=== PATIENT | female | born 1960 | race Caucasian/White ===

== ENCOUNTER → 2017-12-20 06:49 | Outpatient (CLI) | payer BC, SELFPAY ==
--- NOTE | 2017-12-20 09:31 | STRESSREP ---
Stress Test Report Exercise myocardial perfusion stress test. 57-year-old lady with a history of chest pain. Medications aspirin metoprolol pravastatin isosorbide and Plavix. Stress protocol: Resting EKG demonstrates normal sinus rhythm with a rate of 78 bpm normal intervals and noted resting blood pressure 738/82 mmHg. The patient exercised according to regular Alcides protocol for total duration of 5 minutes and 15 seconds completing 2 minutes and 15 seconds to stage II of the Alcides protocol the maximum heart rate attained was 146 bpm addressed with 88% maximum predicted heart rate the maximum workload attained was 7 metabolic equivalents. At rest there were no ST or T-wave changes noted suggest ischemia at peak exercise no ST or T-wave changes were noted suggest ischemia. No clinical angina was noted. The resting blood pressure 738/82 with a peak blood pressure 190/68 mmHg rate pressure product was 26,400. Myocardial perfusion protocol. 14.1 mCi of technetium 99m sestamibi was injected at rest. The patient exercised according to regular Alcides protocol for a total duration of 5 minutes and 15 seconds. At peak exercise 44.8 mCi of technetium 99m sestamibi was injected stress images were reconstructed and compared in the short axis vertical long and horizontal long axis. Gated images were also obtained. Perfusion SPECT analysis: The stress and rest images were reconstructed and compared. The stress images demonstrate normal uptake of tracer noted in all areas of the myocardium. The resting images similarly demonstrate normal uptake of tracer noted in all areas of myocardium. No areas of reversibility are noted suggest ischemia. No previous infarct was noted. Gated SPECT analysis: The gated ejection fraction is noted to be 84%. Conclusion: Normal exercise myocardial perfusion stress test at a moderate workload. Preserved ejection fraction.
== END ==
PROVIDERS: Family Provider Student in an Organized Health Care Education/Training Program; PCP Student in an Organized Health Care Education/Training Program; Visit Provider Physician Assistant Medical
DX: R07.9 Chest pain, unspecified (principal); I25.10 Atherosclerotic heart disease of native coronary artery without angina pectoris; R06.09 Other forms of dyspnea; I10 Essential (primary) hypertension
CPT/HCPCS: 78452; 93017; A9500; A4216

== ENCOUNTER → 2018-01-01 09:08 | Outpatient (CLI) | payer BC, SELFPAY ==
--- NOTE | 2018-01-01 09:10 | RAD_ITS ---
STUDY: X-RAY - LEFT KNEE REASON FOR EXAM: Female, 57 years old. Pain. TECHNIQUE: 4 view(s) of the knee. COMPARISON: 4 views of the left knee May 08, 2017; intraoperative fluoroscopic spot views of the left knee 1215 hours. FINDINGS: Early lateral periarticular spurring of the femoral condyles. The lateral periarticular spurring of the tibial plateau. Normal visualized proximal fibula. There is mixed sclerotic and lucent density in the mid to upper body of the patella, the site of prior stabilization pin or drill on the intraoperative images. There is mild to moderate lateral periarticular spurring of the patella. There is no demonstrated destructive osseous lesion or acute fracture. There is mild degenerative arthrosis of the medial femorotibial compartment. Normal lateral femorotibial compartment. Normal patellofemoral articulation. Normal proximal tibiofibular articulation. There is no demonstrated joint effusion. There is mild deformity of the prepatellar soft tissues that may reflect postsurgical change. RAD/Knee 4 or More Views IMPRESSION: Stable mild degenerative changes of the left knee, as described. Mixed density in the mid body of the patella secondary to placement of stabilization pin or drill seen on earlier intraoperative spot films. Electronically Signed: Keyshawn Reynolds MD at 19:51 EDT , Service support ,
== END ==
PROVIDERS: Family Provider Student in an Organized Health Care Education/Training Program; PCP Student in an Organized Health Care Education/Training Program; Visit Provider Orthopaedic Surgery
DX: M25.562 Pain in left knee (principal)
CPT/HCPCS: 73564

== ENCOUNTER → 2018-03-29 10:52 | Outpatient (CLI) | payer BC, SELFPAY ==
[2018-03-29 11:49] LABS: AST(SGOT) 12 U/L (15-37); Alanine Aminotransfer ALT/SGPT 27 U/L (13-56); Albumin, Serum 4.2 g/dL (3.2-5.0); Alkaline Phosphatase 59 U/L (45-117); Cholesterol 210 mg/dL (200); Globulin 3.5 g/dL (2.2-4.2); High Density Lipoprotein 44 mg/dL; Protein, Total 7.7 g/dL (6.4-8.2); Triglycerides 247 mg/dL; Very Low Density Lipoprotein 49 mg/dL (5-40)
== END ==
PROVIDERS: Family Provider Student in an Organized Health Care Education/Training Program; PCP Student in an Organized Health Care Education/Training Program; Referring Provider Internal Medicine Cardiovascular Disease; Visit Provider Internal Medicine Cardiovascular Disease
DX: E78.5 Hyperlipidemia, unspecified (principal)
CPT/HCPCS: 36415; 80061; 80076

== ENCOUNTER 2019-03-01 11:12 | Outpatient (RCR) | payer BC, SELFPAY ==
[2018-09-20 09:16] VITALS: BMI 42.4
== END 2019-03-02 23:59 ==
LOC: NS 11:12
PROVIDERS: Family Provider Student in an Organized Health Care Education/Training Program; PCP Student in an Organized Health Care Education/Training Program; Visit Provider Orthopaedic Surgery
DX: E66.9 Obesity, unspecified (principal); Z68.41 Body mass index [BMI] 40.0-44.9, adult; Z71.3 Dietary counseling and surveillance
CPT/HCPCS: 97802

== ENCOUNTER 2019-03-15 09:15 | Outpatient (RCR) | payer BC, SELFPAY ==
[2018-09-20 09:16] VITALS: BMI 42.4
== END 2019-04-01 23:59 ==
LOC: NS 09:15
PROVIDERS: Family Provider Student in an Organized Health Care Education/Training Program; PCP Student in an Organized Health Care Education/Training Program; Visit Provider Orthopaedic Surgery
DX: E66.9 Obesity, unspecified (principal); Z68.41 Body mass index [BMI] 40.0-44.9, adult; Z71.3 Dietary counseling and surveillance
CPT/HCPCS: 97803

== ENCOUNTER 2019-04-19 08:30 | Outpatient (RCR) | payer BC, SELFPAY ==
[2018-09-20 09:16] VITALS: BMI 42.4
== END 2019-05-02 23:59 ==
LOC: NS 08:30
PROVIDERS: Family Provider Student in an Organized Health Care Education/Training Program; PCP Student in an Organized Health Care Education/Training Program; Visit Provider Orthopaedic Surgery
DX: E66.9 Obesity, unspecified (principal); Z68.41 Body mass index [BMI] 40.0-44.9, adult; Z71.3 Dietary counseling and surveillance
CPT/HCPCS: 97803

== ENCOUNTER 2019-05-29 09:30 | Outpatient (RCR) | payer BC, SELFPAY ==
[2018-09-20 09:16] VITALS: BMI 42.4
== END 2019-06-01 23:59 ==
LOC: NS 09:30
PROVIDERS: Family Provider Student in an Organized Health Care Education/Training Program; PCP Student in an Organized Health Care Education/Training Program; Visit Provider Orthopaedic Surgery
DX: Z71.3 Dietary counseling and surveillance (principal); E66.9 Obesity, unspecified; Z68.41 Body mass index [BMI] 40.0-44.9, adult
CPT/HCPCS: 97803

== ENCOUNTER 2019-08-20 10:08 | Outpatient (RCR) | payer BC, SELFPAY ==
[2019-05-03 10:41] VITALS: BMI 43.5
== END 2019-08-31 23:59 ==
LOC: NS 10:08
PROVIDERS: Family Provider Student in an Organized Health Care Education/Training Program; PCP Student in an Organized Health Care Education/Training Program; Visit Provider Orthopaedic Surgery
DX: Z71.3 Dietary counseling and surveillance (principal); E66.9 Obesity, unspecified; Z68.41 Body mass index [BMI] 40.0-44.9, adult
CPT/HCPCS: 97803

== ENCOUNTER → 2020-04-15 | Outpatient (CLI) | payer MEDICARE, SELFPAY ==
[2020-04-06 08:40] VITALS: BMI 43.5
--- NOTE | 2020-04-15 07:40 | CT_ITS ---
CT of the right lower extremity without contrast INDICATION: Preop right knee arthroplasty, Yu code procedure. COMPARISON: X-ray 04/06/2020 TECHNIQUE: Multiple thin section axial CT images of the right lower extremity were obtained through the hip joint, knee joint, and ankle joint and filmed in bone windows. Furthermore, multiple sagittal and coronal reconstructions were performed. Dose limiting techniques were utilized. Next FINDINGS: No abnormal soft tissue mass, lymphadenopathy, or fluid collection. No acute fracture or dislocation. No lytic or blastic lesions. Mild arthrosis the right hip joint with some lateral spurring of the roof of acetabulum. Moderate right knee arthrosis with the moderate narrowing of the medial compartment and a moderate size joint effusion. Normal ankle joint. IMPRESSION: Moderate knee arthrosis. Electronically Signed: Miguel Hutchinson MD at 13:18 EDT Tel , Service support , CT/Extremity Lower without Contra
== END | disposition home or self-care (01) ==
PROVIDERS: PCP Student in an Organized Health Care Education/Training Program; Referring Provider Orthopaedic Surgery; Visit Provider Orthopaedic Surgery
DX: M17.11 Unilateral primary osteoarthritis, right knee (principal)
CPT/HCPCS: 73700

== ENCOUNTER 2020-05-05 05:30 | Day surgery (SDC) | payer MEDICARE, SELFPAY ==
[2020-04-06 08:40] VITALS: BMI 43.5
--- NOTE | 2020-04-28 08:37 | EKG12_ITS ---
Test Reason : PREOP Blood Pressure : / mmHG Vent. Rate : 058 BPM Atrial Rate : 058 BPM P-R Int : 188 ms QRS Dur : 078 ms QT Int : 428 ms P-R-T Axes : 052 099 083 degrees QTc Int : 420 ms AGE AND GENDER SPECIFIC ECG ANALYSIS Sinus bradycardia Abnormal ECG Confirmed by DOMENICO LOVE, ROMI ([id number]), primer expeditor and drier AVEL SCANLON ([id number]) on 04/29/2020 11:44:39 AM Referred By: Gurjit Hernandez Confirmed By:ROMI ACUÑA MD
[2020-04-28 10:05] LABS: Absolute Lymphocyte Count 1.35 X10^3/uL (0.83-4.51); Absolute Neutrophil Count 6.1 X10^3/uL (2.0-7.7); Basophil# 0.04 X10^3/uL; Basophil% 0.5 % (0-1); Eosinophil# 0.26 X10^3/uL; Hematocrit 37.2 % (37-47); Hemoglobin 12.6 g/dL (12.0-15.0); Lymphocyte # 1.35 X10^3/ul (4.0); Lymphocyte % 15.8 % (19-41); Mean Corp Hgb Conc 33.9 g/dL (32-36); Mean Corpuscular Hgb 31.4 pg (27.0-32.0); Mean Corpuscular Volume 92.8 fL (81-99); Mean Platelet Vol. 9.3 fl (6.2-12.0); Monocyte# 0.79 X10^3/uL; Monocyte% 9.3 % (0-10); NRBC Flagged by Analyzer 0 % (0-5); Neutrophil # 6.06 X10^3/uL (2.7-7.7); Platelet Count 280 K/mm3 (150-450); RBC Distribution Width CV 12.2 % (11.6-14.6); RBC Distribution Width SD 41.9 fl (35.1-43.9); Red Blood Count 4.01 M/mm3 (4.2-5.4); White Blood Count 8.5 K/mm3 (4.4-11.0)
[2020-04-28 10:08] LABS: Prothrombin Time (Protime)PT. 12.8 SECONDS (11.7-14.9)
[2020-04-28 10:09] LABS: Partial Thromboplast Time 25.3 Seconds (24.1-36.2)
[2020-04-28 10:26] LABS: Anion Gap 8 (5-15); BUN 14 mg/dL (7-18); BUN/Creat Ratio 14.1 RATIO (10-20); Calcium,Total 9.3 mg/dL (8.5-10.1); Chloride 95 mmol/L (98-107); Creatinine, Serum 0.99 mg/dL (0.55-1.02); EST Glomerular Filtration Rate 61 mL/min (>60); Est Glom Filt Rate - Afr Amer 74 mL/min (>60); Glucose 95 mg/dL (74-106); Potassium 4.3 mmol/L (3.5-5.1); Sodium Level 129 mmol/L (136-145)
[2020-04-30 11:23] VITALS: BMI 41.5
[2020-05-05] VITALS (8 sets, daily range): BP systolic 137–166; BP diastolic 56–81; PULSE 60–67; RESP 14–16; TEMP 35.5–36.7; O2SAT 93–100; BMI 44.6
[2020-05-05 06:16] LABS: Bedside Glucose 83 mg/dL (70-110)
[2020-05-05] MEDS: Acetaminophen 500 MG Tablet 1000 MG PO (06:21)
[2020-05-05] MEDS: Celecoxib 200 MG Capsule 400 MG PO (06:22)
[2020-05-05] MEDS: Gabapentin 600 MG Tablet PO (06:22)
[2020-05-05] MEDS: Scopolamine 1mg/72hr Patch 1 PATCH TRANSDERM. (06:23)
[2020-05-05] MEDS: Lactated Ringers 1,000 ML 100 ML IV (06:55)
--- NOTE | 2020-05-05 07:14 | HP.PCM_ITS ---
History and Physical Date of Admission: 05/05/20 Intake Vital Signs 04/06/20 BMI 43.5 04/06/20 Height 5 ft 7 in 04/06/20 Weight: 264 lb 04/06/20 BMI 41.3 Intake Visit Reasons: RIGHT KNEE Is patient in pain?: Yes Allergies codeine Allergy (Verified 04/06/20 08:40) Itching Medications Aspirin [Aspirin, Baby] 81 mg PO DAILY@0800 09/25/14 [History Confirmed 04/06/20] Lorazepam [Ativan] 0.5 mg PO DAILY PRN PRN 06/28/17 [History Confirmed 04/06/20] risperidone 1 mg tablet 3 mg PO QDAY tab 03/29/18 [History Confirmed 04/06/20] bupropion HCl 300 mg 24 hr tablet, extended release 300 mg PO QAM 09/20/18 [History Confirmed 04/06/20] carbamazepine 200 mg tablet 200 mg PO .COMPLEX 09/20/18 [History Confirmed 04/06/20] fluoxetine 20 mg capsule 20 mg PO DAILY 09/20/18 [History Confirmed 05/03/19] metoprolol tartrate 25 mg tablet 25 mg PO BID #180 tab 07/30/19 [Rx Confirmed 04/06/20] pravastatin 80 mg tablet 80 mg PO QHS #90 tab 07/30/19 [Rx Confirmed 04/06/20] hydrochlorothiazide 25 mg tablet 25 mg PO QDAY #90 tab 11/12/19 [Rx Confirmed 04/06/20] clopidogrel 75 mg tablet 75 mg PO DAILY #90 tab 11/13/19 [Rx Confirmed 04/06/20] fluoxetine 40 mg capsule mg PO 04/06/20 [History Confirmed 04/06/20] lamotrigine 200 mg tablet PO 04/06/20 [History Confirmed 04/06/20] PFSH Social History (Updated 04/06/20 @ 09:[address] Gurjit Hernandez DO) Smoking Status: Current some day smoker tobacco type: e-cigarettes quit status: considering quitting alcohol intake: never substance use type: does not use caffeine: Yes Type: coffee Number of servings: 2 what type of physical activity do you participate in: bicycling HPI RIGHT KNEE: Details: Parts of this documentation were recorded by a scribe, this documentation accurately reflects the service provided and the decisions made by me, Dr. Gurjit Hernandez DO 04/06/20 0743. BRODERICK CAICEDO is a 59 year old F here today for right knee pain. Patient notes that she has had right knee pain for over a year. She denies any known injury. Patient notes that she has pain over her entire anterior knee. She had arthroscopic on 12/18/[address] Owusu. She notes that she had a meniscus tear that was cleaned out. Patient states that her pain is worse now since her surgery. Patient completed physical therapy prior to surgery and after surgery. She had to quit therapy due to increased pain. Patient has increased pain with ambulating stairs. She has popping in her knee. Patient complains of swelling. Patient notes that she has knee instability. Patient denies any injections and does not want to try them. She has OTC braces which is not helpful. Patient is taking hydrocodone for pain. Patient denies any recent xrays or MRI. She denies any inflammatory conditions. She notes that she has taken aleve before which caused her stomach issues. She is on Plavix for stentAnd aspirin ROS [facility] Reports joint pain, Reports joint swelling, Reports stiffness Skin/Breast Reports system reviewed and no additional complaints, except as docu Neuro Yes system reviewed and no additional complaints, except as docu Ortho Exam Right Knee Skin/Wound: Yes CDI, No erythema, No ecchymosis, Yes swelling Homans Sign: No 1+: Effusion Knee ROM: Yes ROM-Extension -20 to 0 (-5), Yes ROM-Flexion 0-140 (100) Examination: Yes Med jt line tenderness, Yes Lat jt line tenderness, Yes TTP inf pole patella, Yes Pain with flexion Stability: NML: Anterior Drawer, NML: Posterior Drawer, NML: Valgus 30, NML: Varus 30 Patella Translation: 1 Patella Grind: Yes KNEE: no patellar instability. Left Knee Patella Translation: 1 Supplemental Info 04/06/2020 moderately severe medial joint space narrowing with subchondral sclerosis and spurring moderate spurring patellofemoral joint Assessment & Plan Problems 1. Primary osteoarthritis of right knee M17.11 2. Class 3 severe obesity due to excess calories without serious comorbidity with body mass index (BMI) of 40.0 to 44.9 in adult E66.01; Z68.41 3. Other tobacco product nicotine dependence, uncomplicated F17.290 Plan Educated the patient about the anatomy of the knee and etiology of her pain. Spoke with her about osteoarthritis and her options- gel injection vs steroid injection, physical therapy, weight loss, total knee replacement. She is not interested in injections. Spoke with her about the benefits of stopping smoking and explained increase risk of infection secondary to smoking and weight. Explained the surgery procedure and recovery. She will have numbness over her lateral knee. Patient will be on a blood thinner following surgery to prevent blood clot. Patient will also need to wear a compression stocking. She will need to have an antibiotic prior to any dental work. She will need formal physical therapy for range of motion. Patient will not be able to drive for about 6 weeks. Spoke with her about the robotic surgery. She will need a CT scan for templating. Spoke with her about same day surgery which she preferred. Explained the iovera treatment. Risks, benefits and alternatives of surgery reviewed including but not limited to bleeding, infection, nerve, artery and/or tissue damage, fracture, VTE, mechanical feel of the knee, continued pain, stiffness and expected post- operative course. Follow up on an as needed basis or sooner if pain, swelling, numbness or associated symptoms, or concerns develop. All questions answered. Patient in agreement of plan. Orders Orders: Knee 4 or More Views Today M25.561 Coding Level of Care Code Global Post Op Diagnoses Primary osteoarthritis of right knee M17.11 ??Osteoarthritis type: primary Class 3 severe obesity due to excess calories without serious comorbidity with body mass index (BMI) of 40.0 to 44.9 in adult E66.01; Z68.41 ??Obesity type: due to excess calories ??Obesity classification: adult class 3 (BMI >= 40) ??Serious obesity comorbidity presence: without serious comorbidity ??Body mass index: BMI 40.0-44.9 Other tobacco product nicotine dependence, uncomplicated F17.290 ??Nicotine product type: other ??Substance use status: uncomplicated I have re-examined the patient. There are no clinical changes since date of exam Procedure Criteria Procedure Type: Elective COVID Risk Discussion: The surgeon/proceduralist and patient have discussed in detail the risk of exposure to and/or potential harm posed by the COVID-19 virus with having a surgery/procedure at this time versus the risk of delaying the surgery/procedure. It is not possible to know either the risk of delaying the surgery or procedure or chance of getting an infection with perfect accuracy, but a joint decision was made between the patient and the surgeon/proceduralist to proceed at this time with the scheduled surgery/procedure as indicated on the consent form.
[2020-05-05] MEDS: Betamethasone/Betamethasone 30 MG/5 ML Vial (09:20)
[2020-05-05] MEDS: Epinephrine (1 mg/ml) 1 MG/ML VIAL (09:20)
[2020-05-05] MEDS: 0.9% Normal Saline (Pres. free 10 ML Vial (09:20)
[2020-05-05] MEDS: Bupivacaine Mpf 0.5% 30 ML VIAL (09:20)
--- NOTE | 2020-05-05 10:01 | PCM.DC.ORTHO ---
Discharge Diet: No Restrictions Weight Bearing Status: Weight bearing as tolerated Call your doctor if you observe: Fever of 101 or Higher, Shortness of breath, Chest pain Suture Line Care: Avoid Pulling/Pushing Additional Instructions: Ice and elevate one week while not ambulating. Ambulation is encouraged. Weightbearing as tolerated. Use assistive devise for stability. Encourage FULL knee extension and flexion 1 time EVERY time you get up and down and MULTIPLE times per day. No showering 72 hours after surgery. Begin showering postop day #3. Remove the dressing prior to shower and gently wash with warm water and antibacterial soap then pat dry and place abdominal pad (or plain gauze) and MAE hose over top. This is to be done daily. Do not submerge for 3 weeks. If not showering daily after the initial 72 hours then you must clean incision and change dressing daily. Do not allow animals near the incision area. Keep clean. Follow anticoagulation recommendations as prescribed. Do not take any NSAIDs while on blood thinner. Do not take any additional narcotic pain medication other than what was prescribed on you surgery day without discussing with physician. Do not take Plavix (clopidogrel) until day after completion of blood thinner (Eliquis), okay to continue baby aspirin. Should refrain from benzodiazepine use in conjunction with narcotics as can cause respiratory depression and . start physical therapy. If you are not currently scheduled for physical therapy or you are unsure of appointment time please call office [facility] to arrange. Call Dr. Hernandez with any concerns. Allergies/Adverse Reactions: Allergies codeine Allergy (Verified 05/05/20 05:58) Itching tramadol Allergy (Verified 05/05/20 05:58) Itching Medications to take at Discharge Aspirin [Aspirin, Baby] 81 mg PO DAILY@0800 09/25/14 risperidone 1 mg tablet 3 mg PO QHS tab 03/29/18 bupropion HCl 300 mg 24 hr tablet, extended release 300 mg PO QAM 09/20/18 carbamazepine 200 mg tablet 200 mg PO .COMPLEX 09/20/18 metoprolol tartrate 25 mg tablet 25 mg PO BID #180 tab 07/30/19 pravastatin 80 mg tablet 80 mg PO QHS #90 tab 07/30/19 hydrochlorothiazide 25 mg tablet 25 mg PO QDAY #90 tab 11/12/19 fluoxetine 40 mg capsule 40 mg PO DAILY 04/06/20 lamotrigine 200 mg tablet 200 mg PO DAILY 04/06/20 Acetaminophen [Tylenol Extra Strength] 1,000 mg PO Q6H PRN #100 tab 05/05/20 Apixaban [Eliquis] 2.5 mg PO BID #30 tab 05/05/20 Cephalexin [Keflex] 1,000 mg PO Q8 #4 cap 05/05/20 Oxycodone [Oxyir] 5 mg PO Q4H PRN PRN #60 tablet 05/05/20 The following prescriptions were given: Apixaban [Eliquis] 2.5 mg PO BID #30 tab Transmission Status: Pending to [facility] Cephalexin [Keflex] 1,000 mg PO Q8 #4 cap Transmission Status: Pending to [facility] Oxycodone [Oxyir] 5 mg PO Q4H PRN PRN #60 tablet PRN Reason: Pain Score 6-10 Transmission Status: Sent to [facility] Acetaminophen [Tylenol Extra Strength] 1,000 mg PO Q6H PRN #100 tab Transmission Status: Pending to [facility] Orders to be completed after discharge: Type & Screen - PAT ONLY Time Frame: 05/05/20, Facility: [facility], Location: Laboratory 12 Lead EKG [[facility]] Location: None Selected Primary Care Physician: Maryjane Da Silva MD [Primary Care Provider] - Test Results: Test results from this visit will be discussed in further detail at your follow-up appointment, if applicable. Please Follow Up With: Gurjit Hernandez DO - 2 weeks
[2020-05-05] MEDS: Lactated Ringers 1,000 ML 125 ML IV (10:05)
--- NOTE | 2020-05-05 10:05 | OP.PCM_ITS ---
Report of Operation Date of Procedure: 05/05/20 Description of Surgical Findings:: Preoperative diagnosis: Right knee DJD Postoperative diagnosis: Same Procedure: Right total knee arthroplasty CT guided Robotic Assisted Implant: Mis triathlon press fit femoral component size3, press-fit tibial baseplate size 3, press fit asymmetric patella size 32, polyethylene X3 size 9 CS Anesthesia: Spinal with adductor canal block Tourniquet time: 13 minutes at 300 mmHg Complications: None Condition: Stable to PACU Estimated blood loss: 200 cc Indication for procedure: This is a 59-year-old female with long standing degenerative joint disease of the knee who has failed conservative treatment and wished to proceed with elective total knee arthroplasty. Risk benefits and alternatives were reviewed including; risk of bleeding, infection, nerve artery and tissue damage, continued pain, postoperative stiffness, venous thromboembolism, need for postoperative rehabilitation, mechanical feel to the knee, and expected postoperative course. The operative CT and templating was performed with component sizing Procedure: The patient was met in the preoperative holding area. The operative extremity was identified by both patient and physician and was marked. Patient was met by anesthesia. An adductor canal block was placed by anesthesia postoperatively the patient was brought back to the operating room on a wheeled cart and transferred to the operating table in the supine position. Anesthesia was started. A well-padded tourniquet was placed on the operative extremity. The patient was prepped and draped in the usual sterile fashion. A timeout was called to ensure the proper patient procedure and extremity were being contemplated. An Esmarch was used to exsanguinate the extremity. The tourniquet was inflated. A 10 blade scalpel was used to make a midline incision down through the skin and subcutaneous tissue. Skin retractors placed. Bovie was used to perform meticulous hemostasis. full-thickness flaps were elevated medial and lateral along the joint capsule. A deep blade scalpel was used to perform a medial parapatellar arthrotomy. The knee was brought to full extension. A Bovie was used to release the soft tissues off the most proximal aspect of the medial tibial plateau, a three-quarter inch curved osteotome was also used for this process. The infrapatellar fat pad was excised. The superior fat pad was excised partially anteriorolateraly and portion the anterioromedial pad was elevated from the femur. At this point our intra- articular femoral array was placed of a 45 degree angle proximal and posterior to the medial epicondyle. Our tibial array was placed greater than 1 hands breath below the incision at a 20 degree angle stab incisions were used for this case were attached and checked with the robotic software. Tourniquet was let down. At this point registration sierra were taken throughout the knee as well as checkpoints placed in the femur and tibia once the knee was registered then tensioned the medial and lateral ligaments in extension and 90 degrees of flexion. We then used these numbers to adjust our components within parameters to balance the knee in both flexion and extension once this was done on our monitor we then proceeded with using the robotic arm to make our tibial plateau cut and anterior posterior and chamfer cuts and distal on the femur. Prior to completing the last 2 chamfer cuts the handle of the saw on the robotic arm bec shauna detached, it did not land in the wound, the handle was removed from the field and the saw was wrapped with Coban sterile technique the wound was thoroughly irrigated with a Betadine rinse all gloves were changed we completed the last 2 chamfer cuts we then trialed and achieved the desired plan with a well-balanced knee. Lug holes were drilled in the femur the tibia preparation was completed with a fin punch and the patella was prepared by first using a caliper to ensure sufficient bone stock and a patellar reamer to remove the desired amount of bone locals were drilled for an asymmetric poly-. We then brought the knee through range of motion with excellent patellar tracking. We thoroughly irrigated the knee with a trial components were removed a posterior capsular injection with her standard cocktail was performed the aqua Mantis was also used to aid in hemostasis. Betadine rinse was allowed to sit and washed out components were press-fit into place. Aricept rinse was then used followed by several more rate liters of irrigation after it was allowed to sit. Joint capsule was closed with #1 Ethibond [id number] followed by Vicryl in the subcutaneous tissues staple in the skin arrays and checkpoints were removed prior to closure all counts were correct stab incisions were closed with a stable standard dressing in the form of Mepilex for the main incision Xeroform 4 x 4 and Tegaderm over pin site holes. Thigh-high MAE hose applied over top of dressing. Patient tolerated the procedure well and was directed to PACU in stable condition no intraoperative complications
--- NOTE | 2020-05-05 10:25 | RAD_ITS ---
STUDY: X-RAY - RIGHT KNEE REASON FOR EXAM: Female, 59 years old. POST OP, RIGHT TECHNIQUE: Frontal and lateral view(s) of the knee. COMPARISON: April 06, 2020 FINDINGS: Normal visualized distal femur. Normal visualized proximal tibia and fibula. Normal proximal tibiofibular articulation. There is total knee replacement. The alignment is near-anatomic . There is postoperative change in the soft tissues. There are skin lula. RAD/Knee 1 or 2 Views IMPRESSION: Right knee replacement. Electronically Signed: Chin Fishman MD at 23:19 EST , Service support ,
== END 2020-05-05 15:00 | disposition home or self-care (01) ==
LOC: SDC 05:31 → AC 05:31
PROVIDERS: Anesthesiology; PCP Student in an Organized Health Care Education/Training Program; Referring Provider Orthopaedic Surgery; Visit Provider Orthopaedic Surgery
PROC: 0SRC0JZ Replacement of Right Knee Joint with Synthetic Substitute, Open Approach (ICD-10-PCS; CPT 27447; principal; 2020-05-05 07:00)
DX: M17.11 Unilateral primary osteoarthritis, right knee (principal); F17.290 Nicotine dependence, other tobacco product, uncomplicated; E66.01 Morbid (severe) obesity due to excess calories; E78.00 Pure hypercholesterolemia, unspecified; F31.9 Bipolar disorder, unspecified; F41.9 Anxiety disorder, unspecified; I10 Essential (primary) hypertension; I25.10 Atherosclerotic heart disease of native coronary artery without angina pectoris; Z95.5 Presence of coronary angioplasty implant and graft; G47.30 Sleep apnea, unspecified; Z68.41 Body mass index [BMI] 40.0-44.9, adult; Z79.02 Long term (current) use of antithrombotics/antiplatelets; Z20.828 Contact with and (suspected) exposure to other viral communicable diseases; Z79.899 Other long term (current) drug therapy; Z79.82 Long term (current) use of aspirin
CPT/HCPCS: 01402; 27447; 36415; 73560; 80048; 82962; 83735; 85025; 85610; 85730; 87081; 87635; 93005; 97162; C1776; C9803; J7120; J0702; J3490; U0003

== ENCOUNTER → 2022-01-26 | Outpatient (CLI) | payer MEDICARE, SELFPAY ==
--- NOTE | 2022-01-26 13:25 | CT_ITS ---
STUDY: CT SCAN LOWER EXTREMITY LEFT REASON FOR EXAM: Female, 61 years old. Templating for a left TKA.[facility] protocol RADIATION DOSAGE (If Supplied By Facility): CTDIvol = ( 18.80 ) mGy, DLP = ( 1519.47 ) mGycm. Individualized dose optimization techniques were used for this CT.? TECHNIQUE: Multiple axial tomographic images of the hip joint, knee joint and ankle joint were obtained. Coronal and sagittal reconstruction was obtained as well. Findings: Imaging of the left hip joint was obtained. The joint spaces relatively well maintained. No acute abnormality is seen. Imaging of the left knee joint was obtained. There is a marked degree of joint space narrowing involving the medial compartment of the knee joint with degenerative spur formation of the distal medial femoral condyle and medial tibial plateau. There is sclerosis of the patella with mild patellofemoral osteoarthritis. Imaging of the ankle joint was obtained. Calcaneal spurs are seen. CT/Extremity Lower without Contra IMPRESSION: Marked degree of joint space narrowing involving the medial compartment knee joint with degenerative spur formation. Mild degree of joint space narrowing of the patellofemoral joint with sclerosis of the superior aspect of the patella. Electronically Signed: Jose Mcgee MD at 15:19 EDT ,
== END | disposition home or self-care (01) ==
LOC: CT 13:12
PROVIDERS: PCP Student in an Organized Health Care Education/Training Program; Referring Provider Orthopaedic Surgery; Visit Provider Orthopaedic Surgery
DX: M17.12 Unilateral primary osteoarthritis, left knee (principal)
CPT/HCPCS: 73700

== ENCOUNTER → 2022-02-07 | Outpatient (CLI) | payer MEDICARE, SELFPAY ==
--- NOTE | 2022-02-07 18:37 | STRESSREP ---
Stress Test Report Pharmacologic myocardial perfusion stress test. 61-year-old lady with a history of premature coronary disease. Stress protocol: Resting KG demonstrates normal sinus rhythm with a rate of 64 bpm normal intervals are noted resting blood pressure is 130/88 mmHg. 0.4 mg of regadenoson was infused per usual protocol followed by rapid intravenous saline flush injection continuous EKG monitoring was performed. The maximum heart rate attained was 83 bpm which was 51% of max impacted heart rate the maximum workload was 1 metabolic equivalent. At rest there were no ST or T wave changes noted to suggest abnormal flow reserve and at peak infusion nonspecific ST changes were noted with did not meet the criteria for ischemia. No clinical angina was noted. Myocardial perfusion protocol. 14.6 mCi of technetium 99m sestamibi was injected at rest. 0.4 mg of regadenoson was infused per usual protocol. At peak infusion 44.2 mCi of technetium 99m sestamibi was injected. Stress images were obtained. Stress and rest images were reconstructed and compared in the short axis vertical long and horizontal long axis. Gated images were not obtained. Perfusion SPECT analysis. Review of the stress images demonstrate normal uptake of tracer noted in the septum and inferior wall and lateral wall. There is mild reduction of perfusion noted in the anterior wall on the stress and rest images to a similar extent suggestive of anterior breast wall attenuation. No previous infarct was noted. No ischemia is noted. Conclusion: Probably normal pharmacologic myocardial perfusion stress test with no evidence of ischemia noted. Anterior breast wall attenuation is suggested.
== END | disposition home or self-care (01) ==
LOC: CVS 07:06
PROVIDERS: PCP Student in an Organized Health Care Education/Training Program; Referring Provider Internal Medicine Cardiovascular Disease; Visit Provider Internal Medicine Cardiovascular Disease
DX: I25.10 Atherosclerotic heart disease of native coronary artery without angina pectoris (principal); R07.9 Chest pain, unspecified; Z95.5 Presence of coronary angioplasty implant and graft
CPT/HCPCS: 78452; 93017; A9500; A4216; J2785

== ENCOUNTER 2022-02-15 08:01 | Day surgery (SDC) | payer MEDICARE, SELFPAY ==
--- NOTE | 2022-02-02 09:20 | EKG12_ITS ---
Test Reason : PRE OP Blood Pressure : / mmHG Vent. Rate : 062 BPM Atrial Rate : 062 BPM P-R Int : 192 ms QRS Dur : 070 ms QT Int : 396 ms P-R-T Axes : 024 088 062 degrees QTc Int : 401 ms Normal sinus rhythm Low voltage QRS Septal infarct , age undetermined Abnormal ECG Confirmed by DOMENICO LOVE, ROMI ([id number]), metropolitan editor JESSIKA CARVAJAL ([id number]) on 02/02/2022 12:48:39 PM Referred By: Gurjit Hernandez Confirmed By:ROMI ACUÑA MD
[2022-02-02 10:08] LABS: Absolute Lymphocyte Count 1.09 X10^3/uL (0.83-4.51); Absolute Neutrophil Count 4.5 X10^3/uL (2.0-7.7); Basophil# 0.03 X10^3/uL; Basophil% 0.5 % (0-1); Eosinophil# 0.26 X10^3/uL; Hematocrit 39.8 % (37-47); Hemoglobin 13.6 g/dL (12.0-15.0); Lymphocyte # 1.09 X10^3/ul (0.83-4.51); Lymphocyte % 16.7 % (19-41); Mean Corp Hgb Conc 34.2 g/dL (32-36); Mean Corpuscular Hgb 32.9 pg (27.0-32.0); Mean Corpuscular Volume 96.1 fL (81-99); Mean Platelet Vol. 8.9 fl (6.2-12.0); Monocyte# 0.65 X10^3/uL; NRBC Flagged by Analyzer 0 % (0-5); Neutrophil # 4.47 X10^3/uL (2.7-7.7); Neutrophil % 68.5 % (47-70); Platelet Count 317 K/mm3 (150-450); RBC Distribution Width CV 12.2 % (11.6-14.6); Red Blood Count 4.14 M/mm3 (4.2-5.4); White Blood Count 6.5 K/mm3 (4.4-11.0)
[2022-02-02 10:21] LABS: Partial Thromboplast Time 25.1 Seconds (24.1-36.2)
[2022-02-02 10:45] LABS: Anion Gap 6 (5-15); BUN 23 mg/dL (7-18); BUN/Creat Ratio 20.5 RATIO (10-20); Calcium,Total 10.2 mg/dL (8.5-10.1); Chloride 98 mmol/L (98-107); Creatinine, Serum 1.12 mg/dL (0.55-1.02); EST Glomerular Filtration Rate 53 mL/min (>60); Est Glom Filt Rate - Afr Amer 64 mL/min (>60); Glucose 106 mg/dL (74-106); Magnesium 2.1 mg/dL (1.6-2.6); Potassium 4.2 mmol/L (3.5-5.1); Sodium Level 132 mmol/L (136-145)
[2022-02-03 07:34] LABS: Fructosamine 219 umol/L (0-285)
--- NOTE | 2022-02-09 14:53 | CASEMGMT ---
RAKESH YUAN Assessment: TC to pt for initial transition planning/care coordination assessment. RN KWABENA introduced self and role at [facility], pt voices understanding and consents to assessment. Pt is A/O x4 and answers all questions appropriately at this time. Care providers, pharmacy, and demographics verified/updated. Admitting Dx: L total knee with ROMIE PCP:Pancho Specialists:David, ortho; Reshma, cardio Preferred Pharmacy: [facility] Insurance: [email or web address] [facility] Prescription Benefit: yes LW/HPOA: Pt states she has a LW/DPOA and her is her DPOA. Encouraged her to bring documents with her to be scanned into her chart. LNOK: Mack Jamison, Living Arrangements: Pt lives with in a single story house with no steps to enter. Pt reports she is I in ADL's and denies concerns at home. Transportation: Pt drives self and denies concerns with transportation. Pt is able to provide transportation for pt post surgery. DME/HHC/SNF: Pt has a CPAP, BSC, shower chair, FWW and canes at home. Pt denies hx of HHC or SNF stays. Pt states no concerns with going home at time of dc. She states she has had the same surgery on her R knee 2 years ago. She plans to go to outpt therapy at [facility] and is awaiting a call for scheduled time and date. Pt states no further concerns/needs. CM to follow. Advised pt to ask CM while in hospital and RN KWABNEA will touch base with her post surgery. She verbalizes understanding. Pt Goal: Home with outpt therapy Plan: Home with outpt therapy through [facility]
[2022-02-15] VITALS (13 sets, daily range): BP systolic 100–170; BP diastolic 71–93; PULSE 82–113; RESP 9–16; TEMP 36.4–36.8; O2SAT 92–98; BMI 38.7
[2022-02-15] MEDS: Acetaminophen 500 MG Tablet 1000 MG PO ×2 (09:07→14:00)
[2022-02-15] MEDS: Lactated Ringers 1,000 ML 125 ML IV (09:07)
[2022-02-15] MEDS: Gabapentin 600 MG Tablet PO (09:08)
[2022-02-15] MEDS: Celecoxib 200 MG Capsule 400 MG PO (09:08)
[2022-02-15] MEDS: Scopolamine 1mg/72hr Patch 1 PATCH TD (09:08)
--- NOTE | 2022-02-15 09:42 | PCM.HP.BLA ---
History and Physical Date of Admission: 02/15/22 [facility] [id number] [place] [address] OFFICE VISIT Date of Service:? 02/04/22 MR#: [id number] Acct: [id number] Name:BRODERICK OSBORNE Rep #: [id number] : 1960 ? ? Provider: Dr. Gurjit Hernandez, DO Age/Sex:? 61/F ? ? [place] [facility] [place] Status: Signed Intake Intake Visit Reasons:?left knee Chief Complaint: Follow-up visit. Allergies No Known Allergies Allergy (Verified 04/29/21 09:16) PFSH Medical History?(Updated 02/01/22 @ 10:53 by Lore Velasquez) Arthritis Atherosclerotic heart disease of [place] coronary artery without angina pectoris Bipolar disorder Cardiology follow-up encounter CPAP (continuous positive airway pressure) dependence Essential (primary) hypertension Former smoker High cholesterol History of diverticulitis History of stress test Hyperlipidemia Hypertension Morbid obesity Nicotine dependence Wears glasses Surgical History?(Updated 02/01/22 @ 10:30 by Lore Velasquez) H/O partial resection of colon H/O: hysterectomy H/O: hysterectomy History of carpal tunnel release History of coronary artery stent placement (11/10/14) History of heart surgery History of right knee joint replacement (05/2020) Hx of cholecystectomy Hx of foot surgery S/P carpal tunnel release s/p gallbladder S/P left knee arthroscopy S/P trigger finger release Family History? Father CAD (coronary artery disease) DiabetesBrother Hypertension Social History? Smoking Status:? Former smoker quit status:? considering quitting alcohol intake:? never substance use type:? does not use caffeine:? Yes Type: coffee Number of servings: 2 what type of physical activity do you participate in:? bicycling HPI left knee Details: Parts of this documentation were recorded by a scribe, this documentation accurately reflects the service provided and the decisions made by me, Dr. Gurjit Hernandez, DO 02/04/22 0951. BRODERICK CAICEDO is a 61 year old F here today for? IOVERA tx of the left knee. no new concerns. Ortho Exam General General: Yes no acute distress Neurologic: Yes alert and Yes oriented x3 Psychologic: Yes reasonable and appropriate Right Knee Patella Translation: 1 Left Knee Skin/Wound: No ecchymosis, No erythema and No swelling Homans Sign: No Knee ROM: Yes ROM-Extension -20 to 0 and No ROM-Flexion 0-140 (110) Examination: Yes med jt line tenderness, Yes Lat jt line tenderness, Yes Crepitus, No Lindy's Test and No TTP Pes Anserine Stability: NML: Anterior Drawer, NML: Posterior Drawer, NML: Valgus 0, NML: Valgus 30, NML: Varus 0 and NML: Varus 30 Patella Translation: 1 Patella Grind: Yes KNEE: no joint effusion Office Procedures Iovera Procedure Details:: Preoperative diagnosis : left knee pain Postoperative diagnosis: Same Procedure: Cryotherapy with Iovera device to anterior femoral cutaneous nerve and 2 branches of the infrapatellar saphenous nerve III nerves in total Description of procedure: Patient was brought back to the procedure room the operative extremity was identified by both patient and physician.? The PIP flexion crease was measured to the midpoint of the patella and this distance was divided in 3 resulting in 10 cm location proximal to the midpoint of the patella.? This line was extended medial and lateral to the extent of the edges of the patella.? This was our treatment line for the anterior femoral cutaneous nerve.? A second treatment line was made 5 cm medial to the inferior pole of the patella and 5 cm distally.? The leg was prepped with alcohol and Betadine.? Lidocaine with epi was used along the treatment lines.? Using the Iovera device treatment lines were treated with 1 minute cycles.? Reproduction of paresthesias was monitored in the area of nerve distribution.? Once all 3 nerves were treated across the 2 treatment lines patient was cleaned and a light dressing with 4 x 4 and Josesito wrap was applied.? Patient tolerated the procedure without complication. Supplemental Info 01/10/2022 x-ray left knee moderate medial joint space narrowing there is spurring throughout the knee, spurring is present in the patellofemoral compartment Coding Level of Care Code Attention Foot Orthopedist Diagnoses Left knee pain? M25.562 Assessment and Plan Assessment and Plan (1) Left knee pain: ?Status:?Acute ? ? ? Orders: Orders Iovera Today M25.569 - Pain in unspecified knee ? Plan Details Additional Comments: Patient wishes to proceed with IOVERA tx today. Educated that she will need to stop all NSAIDs 7 days prior to surgery and will need to stop her Plavix 5 days prior to surgery. Follow up in 2 weeks post op or sooner if pain, swelling, numbness or associated symptoms, or concerns develop.? All questions answered. Patient in agreement of plan. 02/04/22 1108 <Electronically signed by Gurjit Hernadnez DO> Date Gurjit Meloignanjali Signature: Date (if applicable) ?I have re-examined the patient. There are no clinical changes since date of exam
--- NOTE | 2022-02-15 10:30 | KNEE_PTH ---
PATIENT: BRODERICK CAICEDO [place] [facility] [place][id number] AGE/SX: 61/F ROOM: RE02/15/[address]: Dr. Gurjit Hernandez DO : 1960 BED: DIS: 02/15/2022 SPEC #: [id number] RECD: 02/15/22 12:40 STATUS: [place] REJeff #: [id number] JOVANA: 02/15/22 10:[address]: Gurjit Hernandez DEPT: SURGICAL PATHOLOGY RECD BY: Hilda Carbajal ENTERED: 02/15/22 12:46 SP TYPE: TOTAL KNEE OTHR DR: MD Dr. Maryjane Lennon MD Tissues: Knee, NOS Procedures: Decalcification bone/plaque Surgery Specimen Level IV HEADER OPERATION: ERAS, total knee replacement robotic arm assist PRE-OP DIAGNOSIS: Acute left knee pain TISSUE SUBMITTED: Bone and tissue, left knee MICROSCOPIC DIAGNOSIS Bone and soft tissue, left knee, total knee replacement/resection: Pieces of bone with degenerative osteoarthritic changes. 02/18/2022 MICROSCOPIC DESCRIPTION Slides are reviewed. GROSS DESCRIPTION Received is one container designated bone and soft tissue left knee. The specimen consists of multiple fragments of hunt-yellow bone measuring in aggregate 10 x 10 x 4 cm. No soft tissue is identified. Several bony fragments contain articular surfaces consistent with tibial plateau and femoral condyle and displaying prominent osteophyte formation, eburnation, and bone erosion. Electron Gun Inspector sections are submitted in two cassettes bone after decalcification. / WALLY:stella 02/15/22 TC:5 CPT: 04283, 21845
[2022-02-15 10:40] LABS: Bedside Glucose 107 mg/dL (74-106)
[2022-02-15] MEDS: Cefazolin 2 GM in 0.9% Normal Saline 100 ML IV (10:40)
[2022-02-15] MEDS: TXA 1000mg in NS100 100ml (IVPB at Incision) 660 MG IV (10:45)
[2022-02-15] MEDS: dexAMETHasone 10 MG/ML Vial IV (10:45)
[2022-02-15] MEDS: TXA 1000mg in NS100 100ml (IVPB at Closure) 660 MG IV (11:09)
[2022-02-15] MEDS: 0.9% Normal Saline (Pres. free 10 ML Vial (12:03)
[2022-02-15] MEDS: Bupivacaine 0.25% 30 ML Vial (12:03)
[2022-02-15] MEDS: Betamethasone/Betamethasone 30 MG/5 ML Vial (12:03)
[2022-02-15] MEDS: Epinephrine (1 mg/ml) 1 MG/ML VIAL (12:03)
--- NOTE | 2022-02-15 12:30 | OP.PCM_ITS ---
Operative Report Date of Procedure: 02/15/22 Preoperative diagnosis: Left knee DJD Postoperative diagnosis: Same Procedure: Left total knee arthroplasty CT guided Robotic Assisted Implant: Mis triathlon press fit, femoral component size3, tibial baseplate size 3, asymmetric patella size 34, polyethylene X3 size 9 CS Anesthesia: General with adductor canal block Tourniquet time: 13 minutes at 300 mmHg Complications: None Condition: Stable to PACU Estimated blood loss: 200 cc Indication for procedure: This is a 61-year-old female with long standing degenerative joint disease of the knee who has failed conservative treatment and wished to proceed with elective total knee arthroplasty. Risk benefits and alternatives were reviewed including; risk of bleeding, infection, nerve artery and tissue damage, continued pain, postoperative stiffness, venous thromboembolism, need for postoperative rehabilitation, mechanical feel to the knee, and expected postoperative course. The pre- operative CT and templating was performed with component sizing. Procedure: The patient was met in the preoperative holding area. The operative extremity was identified by both patient and physician and was marked. Patient was met by anesthesia. An adductor canal block was placed by anesthesia postoperatively the patient was brought back to the operating room on a wheeled cart and transferred to the operating table in the supine position. Anesthesia was started. A well-padded tourniquet was placed on the operative extremity. The patient was prepped and draped in the usual sterile fashion. A timeout was called to ensure the proper patient procedure and extremity were being contemplated. An esmarch was used to exsanguinate the extremity. The tourniquet was inflated. A 10 blade scalpel was used to make a midline incision down through the skin and subcutaneous tissue. Skin retractors placed. Bovie and Aquamantis were used to perform meticulous hemostasis. full-thickness flaps were elevated medial and lateral along the joint capsule. A deep blade scalpel was used to perform a medial parapatellar arthrotomy. The knee was brought to full extension. A bovie was used to release the soft tissues off the most proximal aspect of the medial tibial plateau, a three-quarter inch curved osteotome was also used in this process. The infrapatellar fat pad was excised. The suprapatellar fat pad was excised partially anteriorolateraly and portion the anterioromedial pad was elevated from the femur. At this point our intra- articular femoral array was placed at a 45 degree angle proximal and posterior to the medial epicondyle. femoral checkpoint was placed at this time. Our tibial array was placed greater than 1 hands breath below the incision at a 20 degree angle stab incisions were made with a 15 blade scalpel and pins were placed and attached to the tibial array , tibial checkpoint was placed in the proximal tibial metaphysis. Tourniquet was let down. At this point registration sierra were taken throughout the knee . Once the knee was registered we then tensioned the medial and lateral ligaments in extension and 90 degrees of flexion. We then used these numbers to adjust our components within parameters to balance the knee in both flexion and extension once this was done on our monitor we then proceeded with using the robotic arm to make our tibial plateau cut, anterior and posterior chamfer and distal femur cuts. we removed the cut fragments with the use of a bovie and Annika, we did use a lamina certifed refrigeration operator to insure we visualized and removed all posterior osteophytes and at this time also used the Aquamantis on the posterior joint capsule. we then trialed and achieved the desired plan with a well-balanced knee. we used the green probe to curry the corresponding tibial rotation based on our CT template. Lug holes were drilled in the femur the tibia preparation was completed with the appropriate sized base plate pinned based on previous rotation curry. An appropriate sized fin punch was used on the tibia and 4 corner drill was used for the press fit component and the patella was prepared by first using a caliper to ensure sufficient bone stock and a patellar reamer to remove the desired amount of bone. lug holes drilled for an asymmetric poly. We then brought the knee through range of motion with excellent patellar tracking. We thoroughly irrigated the knee. Trial components were removed a posterior capsular injection was preformed with our standard cocktail. In a ddition the aqua Mantis was also used to aid in hemostasis. Betadine rinse was allowed to sit and washed out completely. Components were press-fit into place. Aricept rinse was then used followed by several more liters of irrigation after it was allowed to sit. The joint capsule was closed with #1 Ethibond [id number] followed by Vicryl in the subcutaneous tissues with lula in the skin. Arrays and checkpoints were removed prior to closure all counts were correct stab incisions were closed with a staple standard dressing in the form of Mepilex AG for the main incision and a small Mepilex over the pin holes. Thigh-high MAE hose applied over top of dressing. Patient tolerated the procedure well and was directed to PACU in stable condition . There were no intraoperative complications.
--- NOTE | 2022-02-15 12:32 | DCINST_ITS ---
Discharge Instructions Activity Weight Bearing Status: Weight bearing as tolerated Dressing / Incision Call your doctor if you observe: Shortness of breath and Chest pain Additional Dressing/Incision Instructions:: Ice and elevate lower extremities 2 weeks while not ambulating. Ambulation is encouraged. Weight bearing as tolerated. Use assistive devise for stability. Encourage FULL knee extension and flexion 1 time EVERY time you get up and down and MULTIPLE times per day. No showering 72 hours after surgery. Begin showering postop day #3. Remove the dressing prior to shower and gently wash with warm water and antibacterial soap then pat dry and place abdominal pad (or plain gauze) and MAE hose over top. This is to be done daily. Do not submerge for 3 weeks. If not showering daily after the initial 72 hours then you must clean incision and change dressing daily. Do not allow animals near the incision area. Keep clean. Follow anti- coagulation recommendations as prescribed hold Plavix and aspirin until completion of Eliquis then may resume. Do not take any NSAIDs while on blood thinner. Do not take any additional narcotic pain medication other than what was prescribed on your surgery day without discussing with physician. Narcotic medication can be addictive. Do not drink alcohol while taking narcotics. Supplement narcotic prescription with acetaminophen 1000 mg 4 times a day. Start physical therapy. If you are not currently scheduled for physical therapy or you are unsure of appointment time please call office [facility] to arrange. Call Dr. Hernandez with any concerns. Follow Up Care Please Follow Up With: Gurjit Hernandez DO When: 2 weeks Test Results: Test results from this visit will be discussed in further detail at your follow- up appointment, if applicable. Discharge Plan Admission Attending Provider: Gurjit Hernandez Primary Care Provider: Maryjane Da Silva Consulting Providers: Dejan Simpson Discharge Orders/Prescriptions Prescriptions: New cephalexin [cephalexin] 500 mg capsule 1,000 mg PO Q8 Qty: 4 0RF Rx Instructions: take 2 tabs at 9:00 pm and 2 tabs after 5 am when you wake up Eliquis 2.5 mg tablet 2.5 mg PO BID Qty: 14 0RF Rx Instructions: Begin morning after surgery oxycodone 5 mg tablet 5 mg PO Q4H PRN (Reason: pain) 7 Days Qty: 60 0RF Continued risperidone [Risperdal] 1 mg tablet 3 mg PO QHS bupropion HCl 300 mg tablet extended release 24 hr 300 mg PO QAM lamotrigine 200 mg tablet 200 mg PO DAILY tizanidine 2 mg tablet 1 mg PO BID PRN (Reason: Spasms) lorazepam 0.5 mg tablet 0.5 mg PO DAILY PRN (Reason: Anxiety) acetaminophen 500 mg tablet 1,000 mg PO Q6H PRN Qty: 100 0RF metoprolol tartrate 25 mg tablet 25 mg PO BID Qty: 180 3RF pravastatin 80 mg tablet 80 mg PO QHS Qty: 90 3RF hydrochlorothiazide 25 mg tablet 25 mg PO QDAY Qty: 90 3RF Discontinued carbamazepine [Tegretol] 200 mg tablet 200 mg PO .COMPLEX Rx Instructions: 200 mg PO take 1 tab in the morning tramadol 50 mg tablet 50 mg PO PRN PRN (Reason: Pain) aspirin 81 MG tablet,chewable 81 mg PO DAILY@0800 clopidogrel 75 mg tablet 75 mg PO DAILY Qty: 90 3RF Other Ambulatory Orders: 12 Lead EKG (Routine) Timeframe: [id number] Location: None Selected Ordered By: Dr. Gurjit Hernandez Referrals / Follow Up: Maryjane Da Silva MD [Primary Care Provider] - Disposition Discharge Orders: Discharge Patient (Routine); Ordered 02/15/22 Ordered By: Dr. Gurjit Hernandez
--- NOTE | 2022-02-15 13:05 | RAD_ITS ---
INDICATION: post op pacu -- in PACU EXAMINATION/TECHNIQUE: X-RAY - LEFT XR Knee 1 or 2 Views 2 VIEWS COMPARISON: 01/26/2022. FINDINGS: Unremarkable alignment of the tibial and femoral components of the left knee prosthesis. Overlying soft tissue prominence is seen within the fluid consistent with postoperative changes. RAD/Knee 1 or 2 Views IMPRESSION: Unremarkable left knee prosthesis, postoperative changes no evidence of complications. Electronically Signed: Benton Echevarria MD at 15:10 EDT ,
[2022-02-15] MEDS: Cefazolin 1 GM/50 ML BAG IV (15:32)
[2022-02-15] MEDS: oxyCODONE 5 MG Tablet PO (16:24)
== END 2022-02-15 17:35 | disposition home or self-care (01) ==
LOC: SDC 08:01 → AC 08:02
PROVIDERS: Anesthesiology; PCP Student in an Organized Health Care Education/Training Program; Referring Provider Orthopaedic Surgery; Visit Provider Orthopaedic Surgery
PROC: 0SRD0JZ Replacement of Left Knee Joint with Synthetic Substitute, Open Approach (ICD-10-PCS; CPT 27447; principal; 2022-02-15 10:00)
DX: M17.12 Unilateral primary osteoarthritis, left knee (principal); F31.9 Bipolar disorder, unspecified; E66.01 Morbid (severe) obesity due to excess calories; Z87.891 Personal history of nicotine dependence; I25.10 Atherosclerotic heart disease of native coronary artery without angina pectoris; I10 Essential (primary) hypertension; M19.90 Unspecified osteoarthritis, unspecified site; E78.00 Pure hypercholesterolemia, unspecified; Z79.899 Other long term (current) drug therapy; Z79.02 Long term (current) use of antithrombotics/antiplatelets; Z79.82 Long term (current) use of aspirin; Z87.19 Personal history of other diseases of the digestive system; Z68.38 Body mass index [BMI] 38.0-38.9, adult; R94.31 Abnormal electrocardiogram [ECG] [EKG]; Z95.5 Presence of coronary angioplasty implant and graft
CPT/HCPCS: 27447; S2900; 01402; 64447; 36415; 73560; 80048; 82962; 82985; 83735; 85025; 85610; 85730; 86850; 86900; 86901; 87081; 88305; 88311; 93005; 97162; C1776; J7120; J0702; J2405; J3475; J3490

== ENCOUNTER → 2022-05-12 | Outpatient (CLI) | payer MEDICARE, SELFPAY ==
--- NOTE | 2022-05-12 07:53 | ECHOCS_ITS ---
Reason For Study: CAD/ASHD Procedure This was a 2D Doppler, Color Flow transthoracic echocardiogram. The study was technically difficult. Contrast injection was performed. Exam performed in department. Left Ventricle Normal LV size. Left ventricular systolic function is normal. The estimated ejection fraction is 55 %. Infero-Basal: Severely Hypokinetic. There are regional wall motion abnormalities as specified. Right Ventricle Normal RV size. Normal systolic function. Atria Normal left atrium. Normal right atrium. Mitral Valve Normal mitral valve. Tricuspid Valve Normal tricuspid valve. Aortic Valve Trisinus/trileaflet aortic valve. Pulmonic Valve The pulmonic valve is not well visualized. Great Vessels Normal aortic root. The pulmonary artery is normal size. Normal inferior vena cava. Pericardium/Pleural No pericardial effusion. Medication 20 gauge I.V. with prn adaptor inserted into right arm. Diluted definity 1ml given slow IV push to enhance endocardial definition. MMode/2D Measurements & Calculations LVIDd: 4.7 cm IVSd: 0.79 cm Ao root diam: 3.1 cm LVIDs: 3.1 cm LVPWd: 0.76 cm LA dimension: 4.8 cm RVDd: 4.2 cm FS: 34.7 % LAV(MOD-bp): 89.4 ml LA A4 area: 26.5 cm2 RA A4 area: 23.8 cm2 LAV(MOD-bp) Indexed: 42.0 ml/m2 LAV(MOD-sp2): 79.9 ml LAV(MOD-sp4): 83.2 ml Time Measurements MV dec time: 0.19 sec Doppler Measurements & Calculations MV E max damien: 95.5 cm/sec Lat Peak E' Damien: 9.1 cm/sec Med Peak E' Damien: 13.1 cm/sec MV A max damien: 108.4 cm/sec E/E' lat: 10.5 E/E' med: 7.3 MV E/A: 0.88 MV V2 max: 136.7 cm/sec MV P1/2t max damien: 110.2 cm/sec Ao V2 max: 138.2 cm/sec MV max P.5 mmHg MV P1/2t: 67.9 msec Ao max P.6 mmHg MV V2 mean: 68.2 cm/sec MV dec slope: 475.2 cm/sec2 Ao V2 mean: 96.5 cm/sec MV mean P.3 mmHg Ao mean P.2 mmHg MV V2 VTI: 37.2 cm MVA(P1/2t): 3.2 cm2 Ao V2 VTI: 34.8 cm AI max damien: 440.7 cm/sec LV V1 max: 112.9 cm/sec MR max damien: 620.8 cm/sec AI max P.8 mmHg LV V1 max P.1 mmHg MR max P.1 mmHg AI dec slope: 330.4 cm/sec2 LV V1 mean P.6 mmHg MR mean damien: 506.7 cm/sec AI P1/2t: 390.7 msec LV V1 mean: 76.7 cm/sec MR mean P.7 mmHg LV V1 VTI: 28.7 cm MR VTI: 239.3 cm PA V2 max: 93.9 cm/sec PI end-d damien: 81.3 cm/sec ECHO/Echo Complete W/ Contrast Interpretation Summary Normal LV size. Left ventricular systolic function is normal. The estimated ejection fraction is 55 %. There are regional wall motion abnormalities as specified. Contrast injection was performed. Ordering Physician: Lincoln Justice Referring Physician: Maryjane Da Silva Performed By: Aurelio Amaral RCS
== END | disposition home or self-care (01) ==
LOC: CVS 07:53
PROVIDERS: PCP Student in an Organized Health Care Education/Training Program; Visit Provider Internal Medicine Cardiovascular Disease
DX: I25.10 Atherosclerotic heart disease of native coronary artery without angina pectoris (principal)
CPT/HCPCS: 93306; Q9957; A4216; C8929

== ENCOUNTER 2022-05-23 07:44 | Day surgery (SDC) | payer MEDICARE, SELFPAY ==
--- NOTE | 2022-05-16 09:04 | RAD_ITS ---
INDICATION: CAD EXAMINATION/TECHNIQUE: X-RAY - XR Chest 2 Views COMPARISON: 11/05/2014 FINDINGS: LINES/DEVICES: None. LUNGS: No consolidation, edema or effusion. No pneumothorax. MEDIASTINUM AND CARDIOVASCULAR STRUCTURES: Cardiac silhouette not enlarged. Central airways and mediastinal contour are unremarkable. BONES AND SOFT TISSUES: Unremarkable. RAD/Chest PA and Lateral IMPRESSION: No radiographic evidence of acute cardiopulmonary disease. Electronically Signed: Daniele Pacheco MD at 20:12 EST ,
[2022-05-16 10:18] LABS: Absolute Lymphocyte Count 1.35 X10^3/uL (0.83-4.51); Absolute Neutrophil Count 5.7 X10^3/uL (2.0-7.7); Basophil# 0.04 X10^3/uL; Basophil% 0.5 % (0-1); Eosinophil# 0.24 X10^3/uL; Eosinophils% 2.9 % (0-5); Hematocrit 39.8 % (37-47); Hemoglobin 13.7 g/dL (12.0-15.0); Lymphocyte # 1.35 X10^3/ul (0.83-4.51); Lymphocyte % 16.3 % (19-41); Mean Corp Hgb Conc 34.4 g/dL (32-36); Mean Corpuscular Hgb 32.7 pg (27.0-32.0); Mean Platelet Vol. 9.2 fl (6.2-12.0); Monocyte# 0.87 X10^3/uL; Monocyte% 10.5 % (0-10); NRBC Flagged by Analyzer 0 % (0-5); Neutrophil # 5.72 X10^3/uL (2.7-7.7); Neutrophil % 69.3 % (47-70); Platelet Count 315 K/mm3 (150-450); RBC Distribution Width CV 12.9 % (11.6-14.6); RBC Distribution Width SD 44.4 fl (35.1-43.9); Red Blood Count 4.19 M/mm3 (4.2-5.4); White Blood Count 8.3 K/mm3 (4.4-11.0)
[2022-05-16 10:46] LABS: Anion Gap 10 (5-15); BUN 20 mg/dL (7-18); BUN/Creat Ratio 20.2 RATIO (10-20); Calcium,Total 9.8 mg/dL (8.5-10.1); Chloride 97 mmol/L (98-107); Creatinine, Serum 0.99 mg/dL (0.55-1.02); EST Glomerular Filtration Rate 61 mL/min (>60); Est Glom Filt Rate - Afr Amer 74 mL/min (>60); Glucose 95 mg/dL (74-106); Potassium 4.2 mmol/L (3.5-5.1); Sodium Level 136 mmol/L (136-145)
[2022-05-20 07:08] VITALS: BMI 38.4
--- NOTE | 2022-05-23 09:49 | CL.D_ITS ---
Patient Name: BRODERICK CAICEDO Study Date: 05/23/2022 Performing: Lincoln Justice MD Ht: 66 inches 167.64 cm : 1960 Wt: 237.99 lbs 107.95 kg Age: 61 Gender: female BSA: 2.15 PROCEDURE(S) PERFORMED [id number])LHC/COR/LV CLINICAL PROFILE AND INDICATIONS Indications: Suspected CAD Heart Failure: None Stress/Imaging Date: 02/07/22Stress Test with SPECT MPI: Indeterminant CAD Presentations: No Sxs, no angina. CONCLUSIONS Coronary artery disease with previously stented right coronary artery which is patent and moderate disease noted in the midsegment of the same vessel. LAD and circumflex artery have mild disease. RECOMMENDATIONS Medical therapy DESCRIPTION OF PROCEDURE The patient arrived to the procedure lab. The risks and benefits of the procedure as well as a full description of our services here and current unavailability of surgical backup were fully explained to the patient and/or their significant other prior to the catheterization. The Timeout was completed, verifying the correct patient and procedure. The patient's procedural site was prepped and draped in the usual fashion. Local anesthetic was given subcutaneously to right radial region with Lidocaine 2%. Using a modified Seldinger technique, arterial access was obtained via the right radial artery, a 6Fr sheath was inserted. Left Coronary Artery selective angiography was performed in multiple views using a 5 Fr. 4.0 [place] catheter. Right Coronary Artery selective angiography was then performed in multiple views using a 5 Fr. 4.0 [place] catheter. Left Ventriculography was performed in KEE projection using a 5 Fr. [place] catheter. LV to AO pullback pressures were then recorded.The arterial sheath was pulled and a TR Band was applied for hemostasis. 12cc air inserted. CORONARY ANGIOGRAPHY DOMINANCE: Right Dominant LEFT HEART ASSESSMENT Left Ventricular Ejection Fraction: by LV Gram 70 % Normal LV wall motion Normal Left Ventricular systolic function LEFT MAIN: Angiographically normal LEFT ANTERIOR DESCENDING ARTERY: Mild luminal irregularities CIRCUMFLEX ARTERY: Mild luminal irregularities RIGHT CORONARY ARTERY: Previously stented vessel is patent but the mid right coronary artery has an eccentric 60% plaque COMPLICATIONS No Complications PROCEDURE MEDICATIONS Fentanyl 50 mcg IV Versed 1 mg IV Versed 1 mg IV Oxygen: 2 L/min via nasal cannula Heparin given IA 05/23/2022 09:27:23 Verapamil 2.5mg, Ntg 100mcgs, 3000 units of Heparin given IA 05/23/2022 09:27:23 SUMMARY OF HEMODYNAMIC DATA Time AIR REST ECG 08:03:36 AO 120/60 (86) SA 09:29:33 LV 142/-3, 9 09:36:25 LV 142/0, 9 09:36:30 LV 141/3, 12 09:38:10 LVp 135/1, 11 09:38:14 AOp 128/62 (91) 09:38:19 Signed By Lincoln Justice MD On 05/23/2022 09:48:26 Lincoln Justice MD
== END 2022-05-23 11:45 | disposition home or self-care (01) ==
PROVIDERS: PCP Student in an Organized Health Care Education/Training Program; Referring Provider Internal Medicine Cardiovascular Disease; Visit Provider Internal Medicine Cardiovascular Disease
DX: I25.10 Atherosclerotic heart disease of native coronary artery without angina pectoris (principal); I10 Essential (primary) hypertension; E78.5 Hyperlipidemia, unspecified; E66.9 Obesity, unspecified; Z95.5 Presence of coronary angioplasty implant and graft; Z79.82 Long term (current) use of aspirin; Z79.899 Other long term (current) drug therapy; Z87.891 Personal history of nicotine dependence
CPT/HCPCS: 36415; 71046; 80048; 85025; 93458; 99152; 99153; C1894; J7040; Q9967; C1769